=== PATIENT | female | born 1970 | race Caucasian/White ===

== ENCOUNTER 2017-01-10 19:39 | Emergency (ER) | payer BC ==
[2017-01-10 19:51] VITALS: BP 157/85
--- NOTE | 2017-01-10 20:53 | EDM.PDOC ---
ED HPI GENERAL MEDICAL PROBLEM - General Chief Complaint: Skin Complaint Stated Complaint: ALLERGIC REACTION Time Seen by Provider: 01/10/17 20:02 Source of Information: Reports: Patient History Limitations: Reports: No Limitations - History of Present Illness INITIAL COMMENTS - FREE TEXT/NARRATIVE: This lady complains of a rash. She had something similar at the beginning of November. There was a rash, and urticarial rash and she was put on prednisone and triamcinolone. When she stopped it 2 days later it came back and her doctor put her on some antibiotics for a while. She's now been off of both medications. Earlier today she drank some kind of a pomegranate bottle drink and about 30 minutes later she started having a reaction. It's similar to what she had before. She has urticaria on the right forearm little bit on the left arm and some in the small of the back as well as a little bit on her legs. She says it' s very itchy. She takes Zyrtec every day for some pre-existing problems. She's due to see an bakery team leader in 2 days. She denies any tightness in the throat difficulty swallowing or difficulty breathing. She denies any sun exposure she does not use insect repellent. She does have a couple of cats in the house but says they have not been scratching. She plays every day and uses some kind of a mild soap. She's been using the same laundry detergent for many years and doesn' t think that has any effect. - Related Data Allergies Allergy/AdvReac Type Severity Reaction Status Date / Time shellfish derived Allergy Intermediate Hives Verified 04/10/16 23:47 amoxicillin trihydrate Allergy Rash Verified 04/10/16 23:47 [From Augmentin] potassium clavulanate Allergy Rash Verified 04/10/16 23:47 [From Augmentin] Sulfa (Sulfonamide Allergy Rash Verified 04/10/16 23:47 Antibiotics) Home Meds: Home Meds Albuterol Sulfate [Ventolin Hfa] 2 puff IH Q4HR PRN 04/10/16 [History] Calcium Carbonate/Vitamin D3 [Calcium 600 + Vit D 200] 1 each PO DAILY 04/10/16 [History] Cyanocobalamin (Vitamin B-12) [B-12] 5,000 mcg SL DAILY 04/10/16 [History] Fluticasone Propionate [Flonase Allergy Relief] 1 spray NASBOTH BID 04/10/16 [ History] Fluticasone/Salmeterol [Advair Diskus 500-50] 1 puff INH BID 04/10/16 [History] Hydrocortisone [Hydrocortisone 2.5% Crm] 1 dose TOP BID 04/10/16 [History] Ibuprofen [Motrin] 600 mg PO TID PRN 04/10/16 [History] Ipratropium/Albuterol Sulfate [IJD: DuoNeb 3.0-0.5 MG/3 ML] 1 dose INH Q4HR PRN 04/10/16 [History] Ketoconazole [Ketoconazole 2%] 1 applic TOP BID 04/10/16 [History] Montelukast [Singulair] 10 mg PO BEDTIME 04/10/16 [History] Nystatin 1 dose TOP BID 04/10/16 [History] Pantoprazole [Protonix] 40 mg PO ACBREAKFAST 04/10/16 [History] Pseudoephedrine [Sudafed 12 Hour] 120 mg PO BID 04/10/16 [History] Ranitidine [Zantac] 150 mg PO BID 04/10/16 [History] Verapamil [Verapamil ER] 120 mg PO DAILY 04/10/16 [History] medroxyPROGESTERone [Depo-Provera] 150 mg IM ASDIRECTED 04/10/16 [History] Past Medical History 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: Dermatologic 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: Reports: Psoriasis - Infectious Disease History Infectious Disease History: Reports: Chicken Pox Social & Family History - Tobacco Use Smoking Status *Q: Never Smoker Second Hand Smoke Exposure: No - Caffeine Use Caffeine Use: Reports: None - Recreational Drug Use Recreational Drug Use: No ED ROS GENERAL - Review of Systems Review Of Systems: See Below Constitutional: Reports: No Symptoms HEENT: Reports: No Symptoms Respiratory: Reports: No Symptoms Cardiovascular: Reports: No Symptoms Endocrine: Reports: No Symptoms GI/Abdominal: Reports: No Symptoms : Reports: No Symptoms Musculoskeletal: Reports: No Symptoms Skin: Reports: Rash Neurological: Reports: No Symptoms Psychiatric: Reports: No Symptoms Hematologic/Lymphatic: Reports: No Symptoms ED EXAM, SKIN/RASH Exam: See Below Exam Limited By: No Limitations General Appearance: Alert, WD/WN, No Apparent Distress Eye Exam: Bilateral Eye: Normal Inspection Throat/Mouth: Normal Oropharynx Neck: Normal Inspection Respiratory/Chest: Lungs Clear Cardiovascular: Regular Rate, Rhythm Extremities: Normal Inspection (Except for rash) Neurological: Alert Skin: Other (There is a fairly dense urticarial rash to the lateral and ventral surfaces of the right forearm. There are small raised reddish areas some punctate anywhere from 2-3 mm in diameter scattered on her left forearm her legs and some in the small of the back. I did not see any on the chest or neck. The areas on the forearm and number of these wheals have a tiny 1 mm papule in the center that looks like some kind of an insect bite) Course - Vital Signs Last Recorded V/S: Last Vital Signs Temp 38.0 C 01/10/17 19:49 Pulse 97 01/10/17 19:49 Resp 16 01/10/17 19:49 BP 157/85 H 01/10/17 19:49 Pulse Ox 96 01/10/17 19:49 Departure - Departure Time of Disposition: 20:44 Disposition: Home, Self-Care 01 Condition: Fair Clinical Impression: Urticaria - Discharge Information Referrals: Davian Lynch MD [Primary Care Provider] - Forms: ED Department Discharge Additional Instructions: Take prednisone 20 mg twice daily for 5 days. Use the triamcinolone cream to affected areas 3 times a day. Continue taking Zyrtec. Additionally take Benadryl 50 mg 4 times daily. This will make you sleepy and can impair driving. Avoid using soap. You may use shampoo to the hair underarms and groin. Try less frequent bathing, say every third day. Many of the bumps look like they could be insect bites. Animal scabies is a possibility. Having your cats treated for this might be beneficial. Try double rinsing all of your clothing since you can develop an allergy to soap residue even though you've been using the same detergent for years. Keep the appointment with the bakery team leader. It might be helpful for the bakery team leader to see what kind of reaction you are Having even though you can't have testing while taking the prednisone.
== END 2017-01-10 21:09 | disposition home or self-care (01) ==
LOC: JP.ED 19:39
DX: L50.9 Urticaria, unspecified (principal); L40.9 Psoriasis, unspecified; J45.909 Unspecified asthma, uncomplicated; Z88.2 Allergy status to sulfonamides; Z88.8 Allergy status to other drugs, medicaments and biological substances; Z79.899 Other long term (current) drug therapy
CPT/HCPCS: 99283

== ENCOUNTER 2017-12-18 20:16 | Emergency (ER) | payer BC ==
[2017-12-18 20:53] VITALS: BP 123/80
--- NOTE | 2017-12-18 21:27 | EDM.PDOC ---
ED HPI GENERAL MEDICAL PROBLEM - General Chief Complaint: Upper Extremity Injury/Pain Stated Complaint: L ARM - REACTION TO ALLERGY SHOT Time Seen by Provider: 12/18/17 21:03 Source of Information: Reports: Patient History Limitations: Reports: No Limitations - History of Present Illness INITIAL COMMENTS - FREE TEXT/NARRATIVE: 47 yo female presents to ER with redness, pain and itching surrounding allergy injection site. Pt had allergy injection 6 days ago. Does not believe that dose or brand was changed. She did not have reaction until 3 days later when injection site became red. over the last 48 hours redness has increased in size and pain. no drainage. today pt general ill feeling. fatigue. Left Arm Pain Score (Numeric/FACES): 3 - Related Data Allergies Allergy/AdvReac Type Severity Reaction Status Date / Time shellfish derived Allergy Intermediate Hives Verified 12/18/17 20:53 amoxicillin trihydrate Allergy Rash Verified 12/18/17 20:53 [From Augmentin] potassium clavulanate Allergy Rash Verified 12/18/17 20:53 [From Augmentin] Sulfa (Sulfonamide Allergy Rash Verified 12/18/17 20:53 Antibiotics) Home Meds: Home Meds Albuterol Sulfate [Ventolin Hfa] 2 puff IH Q4HR PRN 04/10/16 [History] Calcium Carbonate/Vitamin D3 [Calcium 600 + Vit D 200] 1 each PO DAILY 04/10/16 [History] Cyanocobalamin (Vitamin B-12) [B-12] 5,000 mcg SL DAILY 04/10/16 [History] Fluticasone Propionate [Flonase Allergy Relief] 1 spray NASBOTH BID 04/10/16 [ History] Ipratropium/Albuterol Sulfate [IJD: DuoNeb 3.0-0.5 MG/3 ML] 1 dose NEB Q4HR PRN 04/10/16 [History] Ketoconazole [Ketoconazole 2%] 1 applic TOP BID PRN 04/10/16 [History] Montelukast [Singulair] 10 mg PO BEDTIME 04/10/16 [History] Nystatin 1 dose TOP ASDIRECTED PRN 04/10/16 [History] Pantoprazole [Protonix] 40 mg PO ACBREAKFAST 04/10/16 [History] Pseudoephedrine [Sudafed 12 Hour] 120 mg PO BID 04/10/16 [History] Ranitidine [Zantac] 150 mg PO DAILY 04/10/16 [History] Verapamil [Verapamil ER] 120 mg PO DAILY 04/10/16 [History] medroxyPROGESTERone [Depo-Provera] 150 mg IM ASDIRECTED 04/10/16 [History] Past Medical History 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: Dermatologic History: Reports: Psoriasis - Infectious Disease History Infectious Disease History: Reports: Chicken Pox Social & Family History - Tobacco Use Smoking Status *Q: Unknown Ever Smoked - Caffeine Use Caffeine Use: Reports: None Review of Systems - Review of Systems Review Of Systems: See Below Constitutional: Denies: Fever Respiratory: Denies: Shortness of Breath, Wheezing Cardiovascular: Denies: Chest Pain ED EXAM, GENERAL - Physical Exam Exam: See Below Exam Limited By: No Limitations General Appearance: Alert, WD/WN, No Apparent Distress Head: Atraumatic, Normocephalic Respiratory/Chest: No Respiratory Distress Skin Exam: Warm, Dry, Intact, Erythema (left posterior upper arm erythema mild edema, warm to the touch. outlined with skin marker) Course - Vital Signs Last Recorded V/S: Last Vital Signs Temp 37.4 C 12/18/17 20:51 Pulse 77 12/18/17 20:51 Resp 14 12/18/17 20:51 BP 123/80 12/18/17 20:51 Pulse Ox 96 12/18/17 20:51 Departure - Departure Time of Disposition: 21:25 Disposition: Home, Self-Care 01 Condition: Good Clinical Impression: Cellulitis of arm, left - Discharge Information Instructions: Cellulitis, Adult, [id number] Referrals: Davian Lynch MD [Primary Care Provider] - Forms: ED Department Discharge Additional Instructions: keflex 500 mg twice daily for 7 days Ice to area for pain and itching control if redness grows more then an inch outside of the outline you need to be seen again Call the clinic you received the injection from on Wednesday to report reaction
== END 2017-12-18 21:33 | disposition home or self-care (01) ==
LOC: JP.ED 20:16
DX: L03.114 Cellulitis of left upper limb (principal); J45.909 Unspecified asthma, uncomplicated; Z79.899 Other long term (current) drug therapy; Z91.013 Allergy to seafood; Z88.1 Allergy status to other antibiotic agents; Z88.2 Allergy status to sulfonamides
CPT/HCPCS: 99283

== ENCOUNTER 2020-02-05 08:34 | Day surgery (SDC) | payer BC ==
[2020-02-05] MEDS ORDERED: Propofol 200 MG/20 ML SDV ONE (08:46)
[2020-02-05] MEDS ORDERED: fentaNYL 100 MCG/2 ML SDV ONE (08:46)
[2020-02-05] MEDS ORDERED: Midazolam 1 MG/ML 2 ML SDV ONE (08:46)
[2020-02-05] MEDS ORDERED: Sodium Chloride 0.9% 1,000 ML IV SCH (09:15)
[2020-02-05 10:59] VITALS: BP 103/60; PULSE 100
--- NOTE | 2020-02-05 14:39 | OR ---
DATE OF PROCEDURE: 02/05/2020 SURGEON: Vasyl Castellanos MD PROCEDURE: Colonoscopy. FINDINGS: 1. Transverse colon polyp, approximately 5 mm, completely removed using cold biopsy forceps. 2. Transverse colon polyp, approximately 8 mm, completely removed using hot snare wire device. COMPLICATIONS: None. BOWL TURNER: None. PREOPERATIVE DIAGNOSIS: Screening colonoscopy. POSTOPERATIVE DIAGNOSIS: Screening colonoscopy. RISKS: Risks, benefits, alternatives, and limitations including, but not limited to infection, bleeding, and perforation were explained to the patient, who wished to proceed. PROCEDURE IN DETAIL: The patient was placed in left lateral decubitus position. Digital rectal exam was performed without abnormality. Scope was introduced and advanced atraumatically to the ileocecal valve. A photo was taken of this. Scope was brought back through the ascending, transverse, descending colon, and retroflexed. The aforementioned polyps were identified and completely removed as described above. No abnormalities on retroflexion. No diverticulosis. The patient tolerated the procedure well. Vasyl Castellanos MD /[id number]
== END 2020-02-05 11:02 | disposition home or self-care (01) ==
LOC: JP.SDS 08:34
PROVIDERS: ATTEND Surgery
DX: Z12.11 Encounter for screening for malignant neoplasm of colon (principal); D12.3 Benign neoplasm of transverse colon; I10 Essential (primary) hypertension; J45.909 Unspecified asthma, uncomplicated; K21.9 Gastro-esophageal reflux disease without esophagitis; E66.9 Obesity, unspecified; Z68.29 Body mass index [BMI] 29.0-29.9, adult
CPT/HCPCS: 45380; 45385; J2250; J2704; J3010; J7030; 88305

== ENCOUNTER 2020-12-16 06:27 | Emergency (ER) | payer BC ==
[2020-12-16 07:01] VITALS: BP 131/73; PULSE 78
[2020-12-16] MEDS ORDERED: Ketorolac 30 MG/ML SDV IM ONE (07:27)
--- NOTE | 2020-12-16 07:30 | EDM.PDOC ---
ED HPI GENERAL MEDICAL PROBLEM - General Chief Complaint: Abdominal Pain Stated Complaint: ABD PAIN Time Seen by Provider: 12/16/20 07:20 Source of Information: Reports: Patient, RN Notes Reviewed History Limitations: Reports: No Limitations - History of Present Illness INITIAL COMMENTS - FREE TEXT/NARRATIVE: 50-year-old female presents emergency department with a complaint of abdominal pain, she has had abdominal pain for the last 15 months it will wax and wane she has had some work-up including pelvic ultrasound which does show ovarian cysts as well as a colonoscopy which had a few polyps otherwise nothing remarkable. She states she gets a flareup of the pain every so often but this particular event is predominantly in the right upper quadrant does have radiation of pain to the shoulder she also admits that because she is remodeling her kitchen she has limited space to cook has been eating more fried and fatty foods does get pain after eating the attack last night was quite intense she rates her pain 6 out of 10 at this time still passing gas feels nauseated, no abdominal surgical history Right Lower Abdomen Pain Score (Numeric/FACES): 8 - Related Data Allergies Allergy/AdvReac Type Severity Reaction Status Date / Time shellfish derived Allergy Intermediate Hives Verified 02/05/20 09:08 amoxicillin trihydrate Allergy Rash Verified 02/05/20 09:08 [From Augmentin] Penicillins Allergy Rash Verified 02/05/20 09:08 potassium clavulanate Allergy Rash Verified 02/05/20 09:08 [From Augmentin] Sulfa (Sulfonamide Allergy Rash Verified 02/05/20 09:08 Antibiotics) Home Meds: Home Meds Albuterol Sulfate [Ventolin Hfa] 2 puff IH Q4HR PRN 04/10/16 [History] Calcium Carbonate/Vitamin D3 [Calcium 600 + Vit D 200] 1 each PO BID 04/10/16 [History] Cyanocobalamin (Vitamin B-12) [B-12] 2,500 mcg SL DAILY 04/10/16 [History] Fluticasone Propionate [Flonase Allergy Relief] 1 spray NASBOTH BID 04/10/16 [History] Montelukast [Singulair] 10 mg PO BEDTIME 04/10/16 [History] Pantoprazole [Protonix] 40 mg PO ACBREAKFAST 04/10/16 [History] Budesonide/Formoterol Fumarate [Symbicort 160-4.5 Mcg Inhaler] 2 puff INH BID 02/01/20 [History] EPINEPHrine [Epipen] 0.3 mg IM DAILY PRN 02/01/20 [History] Albuterol/Ipratropium [DuoNeb 3.0-0.5 MG/3 ML] 3 ml INH BID 02/05/20 [History] Simethicone [Gas Relief] 250 mg PO DAILY 02/05/20 [History] Verapamil HCl [Verapamil ER] 120 mg PO DAILY 12/16/20 [History] Past Medical History HEENT History: Reports: Allergic Rhinitis, Impaired Vision, Other (See Below) Other HEENT History: sinus Respiratory History: Reports: Asthma Gastrointestinal History: Reports: Chronic Constipation, Chronic Diarrhea, GERD 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: UTI, 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 HIV History: Reports: Polycystic Ovaries Hematologic History: Reports: B12 Deficiency Dermatologic History: Reports: Psoriasis - Infectious Disease History Infectious Disease History: Reports: Chicken Pox - Past Surgical History HEENT Surgical History: Reports: Naso-Sinus Surgery, Oral Surgery Respiratory Surgical History: Reports: None Dermatological Surgical History: Reports: None Social & Family History - Tobacco Use Tobacco Use Status *Q: Never Tobacco User - Caffeine Use Caffeine Use: Reports: Soda - Recreational Drug Use Recreational Drug Use: No ED ROS GENERAL - Review of Systems Review Of Systems: See Below Constitutional: Reports: No Symptoms HEENT: Reports: No Symptoms Respiratory: Reports: No Symptoms Cardiovascular: Reports: No Symptoms GI/Abdominal: Reports: Abdominal Pain, Flatus, Nausea. Denies: Vomiting : Reports: No Symptoms ED EXAM, GI/ABD - Physical Exam Exam: See Below Exam Limited By: No Limitations General Appearance: Alert, WD/WN, No Apparent Distress Respiratory/Chest: No Respiratory Distress, Lungs Clear, Normal Breath Sounds, No Accessory Muscle Use, Chest Non-Tender Cardiovascular: Regular Rate, Rhythm, No Murmur GI/Abdominal Exam: Soft, Tender (Right upper quadrant) Course - Vital Signs Last Recorded V/S: Last Vital Signs Temp 97.8 F 12/16/20 07:00 Pulse 78 12/16/20 07:00 Resp 16 12/16/20 07:00 BP 131/73 12/16/20 07:00 Pulse Ox 98 12/16/20 07:00 - Orders/Labs/Meds Orders: Active Orders 24 hr Category Date Time Status Abdomen Ltd [US] Urgent Exams 12/16/20 07:25 Taken Labs: Laboratory Tests 12/16/20 12/16/20 12/16/20 Range/Units 07:37 07:37 07:37 WBC 4.8 (4.5-11.0) K/uL RBC 4.41 (3.30-5.50) M/uL Hgb 13.8 (12.0-15.0) g/dL Hct 42.7 (36.0-48.0) % MCV 97 (80-98) fL MCH 31 (27-31) pg MCHC 32 (32-36) % Plt Count 255 (150-400) K/uL Neut % (Auto) 65.0 (36-66) % Lymph % (Auto) 23.5 L (24-44) % [place] % (Auto) 8.8 H (2-6) % Eos % (Auto) 1.9 L (2-4) % Baso % (Auto) 0.8 (0-1) % Sodium 143 (140-148) mmol/L Potassium 4.1 (3.6-5.2) mmol/L Chloride 105 (100-108) mmol/L Carbon Dioxide 28 (21-32) mmol/L Anion Gap 10.5 (5.0-14.0) mmol/L BUN 18 (7-18) mg/dL Creatinine 0.7 (0.6-1.0) mg/dL Est Cr Clr Drug Dosing 74.35 mL/min Estimated GFR (MDRD) > 60 (>60) Glucose 108 H (74-106) mg/dL Lactic Acid 1.3 (0.4-2.0) mmol/L Calcium 8.7 (8.5-10.1) mg/dL Total Bilirubin 0.2 (0.2-1.0) mg/dL AST 19 (15-37) U/L ALT 37 (12-78) U/L Alkaline Phosphatase 80 (46-116) U/L Troponin I < 0.017 (0.000-0.056) ng/mL Total Protein 6.9 (6.4-8.2) g/dL Albumin 3.6 (3.4-5.0) g/dL Globulin 3.3 (2.3-3.5) g/dL Albumin/Globulin Ratio 1.1 L (1.2-2.2) Lipase 84 (73-393) U/L Meds: Medications Discontinued Medications Generic Name Dose Route Start Last Admin Trade Name Camilla PRN Reason Stop Dose Admin Ketorolac Tromethamine 30 mg 12/16/20 07:27 12/16/20 07:31 Ketorolac 30 Mg/Ml Sdv IM 12/16/20 07:28 30 mg ONETIME ONE Administration Departure - Departure Time of Disposition: 08:26 Disposition: Home, Self-Care 01 Condition: Fair Clinical Impression: Abdominal pain Qualifiers: Abdominal location: right lower quadrant Qualified Code(s): R10.31 - Right lower quadrant pain - Discharge Information Instructions: Abdominal Pain, Adult, [id number] Referrals: Davian Lynch MD [Primary Care Provider] - Forms: ED Department Discharge Additional Instructions: Continue to use ibuprofen as needed for pain control, please follow-up with your primary care a couple of days after the HIDA scan has been completed outpatient will call you for an appointment time for your HIDA scan hopefully this week call return to the emergency department worsening of symptoms Sepsis Event Note (ED) - Evaluation Sepsis Screening Result: No Definite Risk - Focused Exam Vital Signs: Vital Signs Temp Pulse Resp BP Pulse Ox 12/16/20 07:00 97.8 F 78 16 131/73 98 - My Orders Last 24 Hours: My Active Orders 12/16/20 07:25 Abdomen Ltd [US] Urgent - Assessment/Plan Last 24 Hours: My Active Orders 12/16/20 07:25 Abdomen Ltd [US] Urgent Plan: Assessment Acuity = acute Site and laterality = right upper quadrant abdominal pain Etiology = suspicious for gallbladder dysfunction Manifestations = none Location of injury = Home Lab values = CBC CMP troponin lipase lactic acid all within normal limits ultrasound shows normal anatomic structure of the gallbladder no stones no thickening of the gallbladder wall Plan I did review lab work ultrasound results with her she is set up for a HIDA scan hopefully will be done this week at which time she will follow-up with her primary care for further evaluation This note was dictated using [employer] voice recognition software please call with any questions on syntax or grammar.
--- NOTE | 2020-12-16 16:13 | US ---
Abdomen Ltd CLINICAL HISTORY: Right upper quadrant pain COMPARISON: None. TECHNIQUE: Real-time images were obtained through the right upper quadrant. FINDINGS: The liver is free of mass or biliary dilatation. There is normal hepatic echotexture. The gallbladder has a normal appearance. The common bile duct measures 3 mm. The pancreas is is partially obscured. No mass is seen. The right kidney measures 10.1 x 4.2 x 5.8 cm. Renal cortex measures 1.2 cm. The IVC is normal. IMPRESSION: Essentially negative right upper quadrant ultrasound Pancreas not well seen
== END 2020-12-16 08:36 | disposition home or self-care (01) ==
LOC: JP.ED 06:27
DX: R10.31 Right lower quadrant pain (principal); J45.909 Unspecified asthma, uncomplicated; K21.9 Gastro-esophageal reflux disease without esophagitis; Z79.899 Other long term (current) drug therapy; Z88.2 Allergy status to sulfonamides; Z91.013 Allergy to seafood; Z88.0 Allergy status to penicillin; Z88.1 Allergy status to other antibiotic agents
CPT/HCPCS: 36415; 76705; 76705-26; 80053; 83605; 83690; 84484; 85025; 96372; 99284-25; J1885

== ENCOUNTER 2024-02-02 09:20 | Day surgery (SDC) | payer OTHER ==
[2024-02-02] MEDS ORDERED: fentaNYL 50 MCG/ML SDV ONE (10:17)
[2024-02-02] MEDS ORDERED: Propofol 200 MG/20 ML SDV ONE ×2 (10:17→11:24)
[2024-02-02] MEDS ORDERED: Midazolam 1 MG/ML 2 ML SDV ONE (10:17)
[2024-02-02] MEDS: Sodium Chloride 0.9% 1,000 ML IV SCH (10:22)
[2024-02-02 12:27] VITALS: BP 156/72; PULSE 59
== END 2024-02-02 11:45 | disposition home or self-care (01) ==
LOC: JP.SDS 09:20
PROVIDERS: ATTEND Surgery
DX: Z12.11 Encounter for screening for malignant neoplasm of colon (principal); D12.3 Benign neoplasm of transverse colon; K62.1 Rectal polyp; K57.30 Diverticulosis of large intestine without perforation or abscess without bleeding; J45.909 Unspecified asthma, uncomplicated; E66.9 Obesity, unspecified
CPT/HCPCS: 00811; 45380; J2250; J2704; J3010; J7030

== ENCOUNTER → 2025-03-01 | Day surgery (SDC) | payer BC ==
[~2025-03-01] MED LIST: Midazolam 1 MG/ML 2 ML SDV ONE; Propofol 200 MG/20 ML SDV ONE; fentaNYL 100 MCG/2 ML SDV ONE
[2025-03-01] MEDS: Lactated Ringers 1,000 ML IV SCH (07:17)
[2025-03-01 08:52] VITALS: BP 133/45; PULSE 61
== END ==
LOC: JP.SDS 06:20
PROVIDERS: ATTEND Surgery
DX: Z12.11 Encounter for screening for malignant neoplasm of colon (principal); K57.30 Diverticulosis of large intestine without perforation or abscess without bleeding; Z86.0100 Personal history of colon polyps, unspecified
CPT/HCPCS: 00812; 45378; J2250; J2704; J3010; J7120